=== PATIENT | male | born 1995 | race Caucasian/White ===

== ENCOUNTER 2016-08-01 18:43 | Emergency (ER) | payer MEDICAID, SELFPAY ==
--- NOTE | 2016-08-01 19:18 | EDDOCDS ---
Physician Documentation [facility] Name: Nj Zazueta Age: 21 yrs Sex: Male : 1995 Arrival Date: 08/01/2016 Time: 18:43 Bed TR8 Private MD: NO PRIMARY PHYSICIAN, . Disposition: 08/01/16 19:13 Discharged to Home/Self Care. Impression: Dental caries - dental pain. - Condition is Stable. - Discharge Instructions: Dental Pain. - Prescriptions for [place] 5- 325 mg Oral Tablet - take 1 tablet by ORAL route every 6 hours As needed MDD: 4 tabs; 20 tablet. penicillin V potassium 500 mg Oral Tablet - take 1 tablet by ORAL route 4 times per day for 10 days; 40 tablet. - Medication Reconciliation, Local Pharmacy Hours form. - Follow up: Your, Dentist; When: Call to arrange an appointment; Reason: Continuance of care. - Problem is an ongoing problem. - Symptoms are unchanged. Historical: - Allergies: no known allergies; - Home Meds: 1. Motrin 800 mg Oral tab (Last dose: 08/01/2016 14:30) 2. Vicodin 5/500 Oral 2 tabs took this morning. Last 2 pills from old prescription - PMHx: none; - PSHx: none; - Social history: Smoking status: Patient uses tobacco products, current every day smoker. No barriers to communication noted, The patient speaks fluent Taiwanese, Speaks appropriately for age. - Family history: Not pertinent. - : The pt / caregiver states he / she is not on anticoagulants. Home medication list is obtained from the patient. - Exposure Risk Screening:: None identified. Vital Signs: 08/01 18:46 BP 139 / 74; Pulse 75; Resp 18 S; Temp 97.9(O); Pulse Ox 100% on R/A; Weight 79.38 kg / gr2 175 lbs (R); Height 6 ft. 1 in. (185.42 cm) (R); Pain 2/10; 18:46 Body Mass Index 23.09 (79.38 kg, 185.42 cm) gr2 MDM: 19:16 Financial registration complete. zo Signatures: Deniz Nicole FNP FNP ke Olin, Zoeann zo Dickerson, LauraRN RN ld5 Sukumar, Josefina, RN RN ttb MTDD
--- NOTE | 2016-08-01 19:18 | EDDOCDS ---
Nurse's Notes [facility] Name: Nj Zazueta Age: 21 yrs Sex: Male : 1995 Arrival Date: 08/01/2016 Time: 18:43 Bed TR8 Private MD: NO PRIMARY PHYSICIAN, . Diagnosis: Dental caries-dental pain Presentation: 08/01 18:48 Presenting complaint: Patient states: Tooth pain and pain to top of head. Intermittent ld5 pain for 2-3 days. Adult Sepsis Screening: The patient does not have new or worsening altered mentation. Patient's respiratory rate is less than 22. Systolic blood pressure is greater than 100. Patient has a qSOFA score of 0- Negative Sepsis Screen. Suicide/Homicide risk assessment- the patient denies having any suicidal and/or homicidal ideations and does not present with any other emotional, behavioral or mental health complaints. Status: Patient is not a floor service worker spring or dependent. Transition of care: patient was not received from another setting of care. 18:48 Acuity: GABE Level 4 ld5 18:48 Method Of Arrival: Walkin/Carried/Asstd ld5 Triage Assessment: 18:50 General: Appears in no apparent distress. Pain: Location: left side of mouth, top of ld5 head Pain currently is 3 out of 10 on a pain scale. At worst was 10 out of 10 on a pain scale. HIV screening NA for this visit Offered previously. EENT: Reports pain mouth. Respiratory: Airway is patent Respiratory effort is even, unlabored. Historical: - Allergies: no known allergies; - Home Meds: 1. Motrin 800 mg Oral tab (Last dose: 08/01/2016 14:30) 2. Vicodin 5/500 Oral 2 tabs took this morning. Last 2 pills from old prescription - PMHx: none; - PSHx: none; - Social history: Smoking status: Patient uses tobacco products, current every day smoker. No barriers to communication noted, The patient speaks fluent Vietnamese, Speaks appropriately for age. - Family history: Not pertinent. - : The pt / caregiver states he / she is not on anticoagulants. Home medication list is obtained from the patient. - Exposure Risk Screening:: None identified. Screenin:16 Screening information is obtained from the patient. Fall risk: No risks identified. ttb Assistance ADL's: requires no assistance with activities of daily living. Abuse/DV Screen: The patient / caregiver reports he/she is: not in a situation that causes fear, pain or injury. Nutritional screening: No deficits noted. Advance Directives: Currently, there is no health care proxy. home support is adequate. Assessment: 19:16 General: Appears in no apparent distress, well nourished, well groomed, Behavior is ttb appropriate for age, cooperative, pleasant. Neurological: Level of Consciousness is awake, alert, Reports headache. Cardiovascular: Chest pain is denied. Respiratory: Airway is patent. Derm: Skin is normal. Vital Signs: 18:46 BP 139 / 74; Pulse 75; Resp 18 S; Temp 97.9(O); Pulse Ox 100% on R/A; Weight 79.38 kg gr2 (R); Height 6 ft. 1 in. (185.42 cm) (R); Pain 2/10; 18:46 Body Mass Index 23.09 (79.38 kg, 185.42 cm) gr2 Vitals: 18:46 Log In Time: August 01, 2016 at 18:46. gr2 ED Course: 18:45 Patient visited by Jayna Sheridan. gr2 18:45 NO PRIMARY PHYSICIAN, . is Private Physician. gr2 18:45 Patient moved to Waiting gr2 18:47 Patient visited by Jayna Sheridan. gr2 18:47 Patient moved to Pre RCE gr2 18:49 Triage Initiated ld5 18:51 Patient visited by Eloisa Grier RN. ld5 18:51 Patient moved to Triage 2 ld5 18:57 Deniz Nicole FNP is [facility]. ke 18:57 Patient visited by Deniz Nicole FNP. ke 18:57 Patient visited by Deniz Nicole FNP. ke 19:12 Your, Dentist is Referral Physician. ke 19:16 The patient / caregiver is instructed regarding the plan of care and ED course. Patient ttb has correct armband on for positive identification. 19:16 No IV's were initiated during this patient's visit. No procedures done that require ttb assistance. 19:17 Patient moved to TR8 cz Order Results: There are currently no results for this order. Outcome: 19:13 Discharge ordered by Provider. ke 19:16 Discharge Assessment: Patient awake, alert and oriented x 3. No cognitive and/or ttb functional deficits noted. Patient verbalized understanding of disposition instructions. Patient awake and alert. patient administered narcotics - no. The following High Risk Discharge criteria are identified: None. Discharged to home ambulatory. Condition: good Condition: stable Condition: improved. Discharge instructions given to patient, Instructed on discharge instructions, follow up and referral plans. medication usage, no driving heavy equipment, no drinking with medication, Demonstrated understanding of instructions, medications, no d/d with narcs Pt was receptive of discharge instructions/ teaching. Prescriptions given X 2. No special radiology studies were completed. Property sent home with patient. 19:18 Patient left the ED. ttb Signatures: Roderick Hoffmann RN RN Deniz Sorto FNP FNP ke Dickerson, Laura, RN RN ld5 Josefina Patino RN RN ttb Jayna Sheridan gr2 NIKOLYA
--- NOTE | 2016-08-03 20:19 | EDDOCDS ---
Physician Documentation [facility] Name: Nj Zazueta Age: 21 yrs Sex: Male : 1995 Arrival Date: 08/01/2016 Time: 18:43 Bed TR8 Private MD: NO PRIMARY PHYSICIAN, . Disposition: 08/01/16 19:13 Discharged to Home/Self Care. Impression: Dental caries - dental pain. - Condition is Stable. - Discharge Instructions: Dental Pain. - Prescriptions for [place] 5- 325 mg Oral Tablet - take 1 tablet by ORAL route every 6 hours As needed MDD: 4 tabs; 20 tablet. penicillin V potassium 500 mg Oral Tablet - take 1 tablet by ORAL route 4 times per day for 10 days; 40 tablet. - Medication Reconciliation, Local Pharmacy Hours form. - Follow up: Your, Dentist; When: Call to arrange an appointment; Reason: Continuance of care. - Problem is an ongoing problem. - Symptoms are unchanged. Historical: - Allergies: no known allergies; - Home Meds: 1. Motrin 800 mg Oral tab (Last dose: 08/01/2016 14:30) 2. Vicodin 5/500 Oral 2 tabs took this morning. Last 2 pills from old prescription - PMHx: none; - PSHx: none; - Social history: Smoking status: Patient uses tobacco products, current every day smoker. No barriers to communication noted, The patient speaks fluent [place]er, Speaks appropriately for age. - Family history: Not pertinent. - : The pt / caregiver states he / she is not on anticoagulants. Home medication list is obtained from the patient. - Exposure Risk Screening:: None identified. Vital Signs: 08/01 18:46 BP 139 / 74; Pulse 75; Resp 18 S; Temp 97.9(O); Pulse Ox 100% on R/A; Weight 79.38 kg / gr2 175 lbs (R); Height 6 ft. 1 in. (185.42 cm) (R); Pain 2/10; 18:46 Body Mass Index 23.09 (79.38 kg, 185.42 cm) gr2 MDM: 19:16 Financial registration complete. zo 20:15 [facility] Payment Agreement was scanned into [employer] and attached to record. zo 08/02 09:57 T-Sheet-- Draft Copy was scanned into [employer] and attached to record. gb Signatures: Elizabeth Mackey, Reg Reg gb Deniz Nicole, DOOR ATTENDANT Shauna Pool Laura,EFREM RN ld5 Josefina Patino RN RN ttb The chart was reviewed and I authenticate all verbal orders and agree with the evaluation and treatment provided.Attachments: 08/01 20:15 [facility] Payment Agreement zo 08/02 09:57 T-Sheet-- Draft Copy gb Chart Complete MTDD
--- NOTE | 2016-08-03 20:19 | EDDOCDS ---
Physician Documentation [facility] Name: Nj Zazueta Age: 21 yrs Sex: Male : 1995 Arrival Date: 08/01/2016 Time: 18:43 Bed TR8 Private MD: NO PRIMARY PHYSICIAN, . Disposition: 08/01/16 19:13 Discharged to Home/Self Care. Impression: Dental caries - dental pain. - Condition is Stable. - Discharge Instructions: Dental Pain. - Prescriptions for [place] 5- 325 mg Oral Tablet - take 1 tablet by ORAL route every 6 hours As needed MDD: 4 tabs; 20 tablet. penicillin V potassium 500 mg Oral Tablet - take 1 tablet by ORAL route 4 times per day for 10 days; 40 tablet. - Medication Reconciliation, Local Pharmacy Hours form. - Follow up: Your, Dentist; When: Call to arrange an appointment; Reason: Continuance of care. - Problem is an ongoing problem. - Symptoms are unchanged. Historical: - Allergies: no known allergies; - Home Meds: 1. Motrin 800 mg Oral tab (Last dose: 08/01/2016 14:30) 2. Vicodin 5/500 Oral 2 tabs took this morning. Last 2 pills from old prescription - PMHx: none; - PSHx: none; - Social history: Smoking status: Patient uses tobacco products, current every day smoker. No barriers to communication noted, The patient speaks fluent Kittitian, Speaks appropriately for age. - Family history: Not pertinent. - : The pt / caregiver states he / she is not on anticoagulants. Home medication list is obtained from the patient. - Exposure Risk Screening:: None identified. Vital Signs: 08/01 18:46 BP 139 / 74; Pulse 75; Resp 18 S; Temp 97.9(O); Pulse Ox 100% on R/A; Weight 79.38 kg / gr2 175 lbs (R); Height 6 ft. 1 in. (185.42 cm) (R); Pain 2/10; 18:46 Body Mass Index 23.09 (79.38 kg, 185.42 cm) gr2 MDM: 19:16 Financial registration complete. zo 20:15 [facility] Payment Agreement was scanned into [employer] and attached to record. zo 08/02 09:57 T-Sheet-- Draft Copy was scanned into [employer] and attached to record. gb Signatures: Elizabeth Mackey, Reg Reg gb Deniz Nicole, COMMERCIAL LOAN OFFICER Shauna Pool Laura,EFREM RN ld5 Josefina Patino RN RN ttb The chart was reviewed and I authenticate all verbal orders and agree with the evaluation and treatment provided.Attachments: 08/01 20:15 [facility] Payment Agreement zo 08/02 09:57 T-Sheet-- Draft Copy gb Chart Complete MTDD
--- NOTE | 2016-08-03 20:19 | EDDOCDS ---
Nurse's Notes [facility] Name: Nj Zazueta Age: 21 yrs Sex: Male : 1995 Arrival Date: 08/01/2016 Time: 18:43 Bed TR8 Private MD: NO PRIMARY PHYSICIAN, . Diagnosis: Dental caries-dental pain Presentation: 08/01 18:48 Presenting complaint: Patient states: Tooth pain and pain to top of head. Intermittent ld5 pain for 2-3 days. Adult Sepsis Screening: The patient does not have new or worsening altered mentation. Patient's respiratory rate is less than 22. Systolic blood pressure is greater than 100. Patient has a qSOFA score of 0- Negative Sepsis Screen. Suicide/Homicide risk assessment- the patient denies having any suicidal and/or homicidal ideations and does not present with any other emotional, behavioral or mental health complaints. Status: Patient is not a school services officer or dependent. Transition of care: patient was not received from another setting of care. 18:48 Acuity: GABE Level 4 ld5 18:48 Method Of Arrival: Walkin/Carried/Asstd ld5 Triage Assessment: 18:50 General: Appears in no apparent distress. Pain: Location: left side of mouth, top of ld5 head Pain currently is 3 out of 10 on a pain scale. At worst was 10 out of 10 on a pain scale. HIV screening NA for this visit Offered previously. EENT: Reports pain mouth. Respiratory: Airway is patent Respiratory effort is even, unlabored. Historical: - Allergies: no known allergies; - Home Meds: 1. Motrin 800 mg Oral tab (Last dose: 08/01/2016 14:30) 2. Vicodin 5/500 Oral 2 tabs took this morning. Last 2 pills from old prescription - PMHx: none; - PSHx: none; - Social history: Smoking status: Patient uses tobacco products, current every day smoker. No barriers to communication noted, The patient speaks fluent Romansh, Speaks appropriately for age. - Family history: Not pertinent. - : The pt / caregiver states he / she is not on anticoagulants. Home medication list is obtained from the patient. - Exposure Risk Screening:: None identified. Screenin:16 Screening information is obtained from the patient. Fall risk: No risks identified. ttb Assistance ADL's: requires no assistance with activities of daily living. Abuse/DV Screen: The patient / caregiver reports he/she is: not in a situation that causes fear, pain or injury. Nutritional screening: No deficits noted. Advance Directives: Currently, there is no health care proxy. home support is adequate. Assessment: 19:16 General: Appears in no apparent distress, well nourished, well groomed, Behavior is ttb appropriate for age, cooperative, pleasant. Neurological: Level of Consciousness is awake, alert, Reports headache. Cardiovascular: Chest pain is denied. Respiratory: Airway is patent. Derm: Skin is normal. Vital Signs: 18:46 BP 139 / 74; Pulse 75; Resp 18 S; Temp 97.9(O); Pulse Ox 100% on R/A; Weight 79.38 kg gr2 (R); Height 6 ft. 1 in. (185.42 cm) (R); Pain 2/10; 18:46 Body Mass Index 23.09 (79.38 kg, 185.42 cm) gr2 Vitals: 18:46 Log In Time: August 01, 2016 at 18:46. gr2 ED Course: 18:45 Patient visited by Jayna Sheridan. gr2 18:45 NO PRIMARY PHYSICIAN, . is Private Physician. gr2 18:45 Patient moved to Waiting gr2 18:47 Patient visited by Jayna Sheridan. gr2 18:47 Patient moved to Pre RCE gr2 18:49 Triage Initiated ld5 18:51 Patient visited by Eloisa Grier RN. ld5 18:51 Patient moved to Triage 2 ld5 18:57 [facility] ke 18:57 Patient visited by Deniz Nicole FNP. ke 18:57 Patient visited by Deniz Nicole FNP. ke 19:12 Your, Dentist is Referral Physician. ke 19:16 The patient / caregiver is instructed regarding the plan of care and ED course. Patient ttb has correct armband on for positive identification. 19:16 No IV's were initiated during this patient's visit. No procedures done that require ttb assistance. 19:17 Patient moved to [facility] 20:15 [id number] Payment Agreement was scanned into [employer] and attached to record. zo 08/02 09:57 T-Sheet-- Draft Copy was scanned into [employer] and attached to record. Order Results: There are currently no results for this order. Outcome: 08/01 19:13 Discharge ordered by Provider. james 19:16 Discharge Assessment: Patient awake, alert and oriented x 3. No cognitive and/or ttb functional deficits noted. Patient verbalized understanding of disposition instructions. Patient awake and alert. patient administered narcotics - no. The following High Risk Discharge criteria are identified: None. Discharged to home ambulatory. Condition: good Condition: stable Condition: improved. Discharge instructions given to patient, Instructed on discharge instructions, follow up and referral plans. medication usage, no driving heavy equipment, no drinking with medication, Demonstrated understanding of instructions, medications, no d/d with narcs Pt was receptive of discharge instructions/ teaching. Prescriptions given X 2. No special radiology studies were completed. Property sent home with patient. 19:18 Patient left the ED. ttb Signatures: Roderick Hoffmann, RN RN cz Narendra, Elizabeth, Reg Reg gb Deniz Nicole, PHOTOENGRAVING PRINTER PHOTOENGRAVING PRINTERShauna Tate Laura,RN RN ld5 Josefina Patino RN RN ttb Jayna Sheridan gr2 Chart Complete NIKOLAY
== END 2016-08-01 19:18 | disposition home or self-care (01) ==
LOC: M ED 18:43
DX: K08.89 Other specified disorders of teeth and supporting structures (principal); Z72.0 Tobacco use

== ENCOUNTER 2017-06-02 20:13 | Emergency (ER) | payer MEDICAID, OTHER ==
[~2017-06-02] VITALS: Ht 185.4 cm; Wt 81.8 kg
[2017-06-02] MEDS ORDERED: IBUP-1022 PO (20:22)
[2017-06-02] MEDS ORDERED: TYLE325T5 PO (20:22)
[2017-06-02] MEDS ORDERED: LIDOCAINE 2% MDV 20 ML VIAL SC ONE (22:00)
[2017-06-02] MEDS ORDERED: PERCOCET 5MG/325MG TAB PO ONE ×2 (22:00→23:30)
[2017-06-02 23:33] VITALS: BP 112/56
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
== END 2017-06-02 23:36 | disposition home or self-care (01) ==
LOC: M ED 20:13
DX: S61.011A Laceration without foreign body of right thumb without damage to nail, initial encounter (principal); S61.412A Laceration without foreign body of left hand, initial encounter; W22.8XXA Striking against or struck by other objects, initial encounter; Y92.009 Unspecified place in unspecified non-institutional (private) residence as the place of occurrence of the external cause; Y93.89 Activity, other specified; Y99.8 Other external cause status

== ENCOUNTER 2017-07-08 18:24 | Emergency (ER) | payer OTHER | END 2017-07-08 20:14 | disposition home or self-care (01) | LOC: M ED 18:24 | DX: Z04.6 Encounter for general psychiatric examination, requested by authority (principal); F43.0 Acute stress reaction | CPT/HCPCS: 73130 ==

== ENCOUNTER → 2017-11-25 | Outpatient (CLI) | payer OTHER | LOC: M RAD 11:40 | DX: R39.11 Hesitancy of micturition (principal) | CPT/HCPCS: 76775 ==

== ENCOUNTER → 2018-09-06 | Outpatient (REF) | payer OTHER, MEDICAID ==
[~2018-09-06] MED LIST: IBUP-1022 PO; TYLE325T5 PO
== END ==
LOC: M LAB REF 18:28
PROVIDERS: ATTEND Family Medicine
DX: L20.9 Atopic dermatitis, unspecified (principal); K12.2 Cellulitis and abscess of mouth

== ENCOUNTER 2020-09-23 21:37 | Emergency (ER) | payer MEDICAID, OTHER ==
[~2020-09-23] VITALS: Ht 185.4 cm; Wt 80.1 kg
[2020-09-23] MEDS ORDERED: LIDOCAINE W/EPINEPHRINE 1% 20ML VIAL SC ONE (23:30)
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
[2020-09-24] MEDS ORDERED: ONDANSETRON 4MG/2ML VIAL IV ONE (00:45)
[2020-09-24] MEDS ORDERED: NS 1,000 ML IV ONE (00:45)
[2020-09-24] MEDS ORDERED: MORPHINE 4 MG/ML 1ML VIAL/SYRINGE (J2270) IV ONE (00:45)
[2020-09-24 02:12] VITALS: BP 119/63
== END 2020-09-24 02:17 | disposition short-term general hospital (02) ==
LOC: M ED 21:37
DX: S02.401A Maxillary fracture, unspecified side, initial encounter for closed fracture (principal); S02.32XA Fracture of orbital floor, left side, initial encounter for closed fracture; S01.81XA Laceration without foreign body of other part of head, initial encounter; Y04.0XXA Assault by unarmed brawl or fight, initial encounter; Y07.9 Unspecified perpetrator of maltreatment and neglect; Y92.9 Unspecified place or not applicable; Y93.9 Activity, unspecified; Y99.9 Unspecified external cause status
CPT/HCPCS: 70450; 70486; 96361; 96374; 99284; J2270; J2405

== ENCOUNTER 2022-01-05 17:40 | Emergency (ER) | payer OTHER ==
[~2022-01-05] VITALS: Ht 185.4 cm; Wt 79.5 kg
[2022-01-05 17:40] VITALS: BP 118/77
[2022-01-05] MEDS ORDERED: CIPROFLOXACIN 0.3% OPHTH SOLN 2.5ML OD ONE (19:05)
[2022-01-05] MEDS ORDERED: CIPR0.3S6 OD (19:11)
== END 2022-01-05 19:58 | disposition home or self-care (01) ==
LOC: M ED 17:40
DX: T15.01XA Foreign body in cornea, right eye, initial encounter (principal); X58.XXXA Exposure to other specified factors, initial encounter; Y92.89 Other specified places as the place of occurrence of the external cause